=== PATIENT | male | born 1955 | race Caucasian/White ===

== ENCOUNTER 2023-05-09 11:11 | Outpatient (CLI) | payer MEDICARE, BC, SELFPAY | END 2023-05-09 11:12 | disposition home or self-care (01) | PROVIDERS: PCP Family Medicine; Visit Provider Family Medicine | DX: E78.5 Hyperlipidemia, unspecified (principal); E04.1 Nontoxic single thyroid nodule; Z12.5 Encounter for screening for malignant neoplasm of prostate; Z13.228 Encounter for screening for other metabolic disorders | CPT/HCPCS: 80048; 80061; 84443; 84460; G0103 ==

== ENCOUNTER 2023-05-15 14:35 | Outpatient (CLI) | payer MEDICARE, BC, SELFPAY ==
--- NOTE | 2023-05-15 15:00 | US_ITS ---
Patient: ROSA ROMERO Facility:?[facility] Patient ID:?[id number] Site Patient ID:?[id number]. Site :?[id number] Study:?US-Thyroid THYROID-05/15/2023 10:27:13 AM Ordering Physician:AUSTIN QUIGLEY M.D. Final Report: INDICATION: Thyroid nodule COMPARISON: none TECHNIQUE: Pedro scale and color Doppler images were acquired of the thyroid gland. FINDINGS: Slightly hypoechoic nodule inferior pole right thyroid lobe measures 9 x 8 x 11 millimeters. Solid and cystic nodule left thyroid lobe measures 3.4 x 2.1 x 2.6 cm. The right lobe measures 5.4 x 1.8 x 1.8 cm and the left lobe measures 5.0 x 2.5 x 2.7 cm in size. Isthmus measures 2 millimeters. The color Doppler images demonstrate normal vascularity. There is no evidence of cervical lymphadenopathy or parathyroid mass. IMPRESSION: 3.4 cm TR 3 nodule left thyroid lobe. FNA recommended. Dictated by Austin Patterson MD @ 05/20/2023 3:55:27 PM Signed by:?Austin Patterson MD @05/20/2023 3:55:27 PM (Electronic Signature)
== END 2023-05-15 14:36 | disposition home or self-care (01) ==
LOC: US 14:36
PROVIDERS: PCP Family Medicine; Visit Provider Family Medicine
DX: E04.1 Nontoxic single thyroid nodule (principal)
CPT/HCPCS: 76536

== ENCOUNTER 2023-06-19 09:57 | Outpatient (CLI) | payer MEDICARE, BC, SELFPAY ==
--- NOTE | 2023-06-19 10:15 | US_ITS ---
Patient: ROSA ROMERO Facility:?[facility] Patient ID:?[id number] Site Patient ID:?[id number]. Site :?1955 Study:?US-Thyroid Left THYROID FNA / DR. FUENTES TO READ-06/19/2023 10:49:40 AM Ordering Physician:?AUSTIN ALVARADO M.D. Final Report: INDICATION : Left thyroid nodule. TECHNIQUE : Ultrasound-guided fine needle aspiration of thyroid nodule. Procedure performed by Radiology Physician cafe assistant. Comparison : 05/15/2023 FINDINGS : PROCEDURE: After the informed consent and time-out, multiple fine needle aspirations were obtained from the thyroid nodule. Fine needle performed. 25 gauge needles were used. Lidocaine was used for local anesthesia. The preliminary cytology was adequate for interpretation. Real-time imaging was used for guidance and needle placement. Post imaging ultrasound demonstrates no immediate complication. IMPRESSION : Successful fine needle aspiration of left thyroid nodule. Dictated by Austin Funetes MD @ 06/20/2023 4:40:19 PM Signed by:?Austin Fuentes MD @06/20/2023 4:40:19 PM (Electronic Signature)
== END 2023-06-19 09:58 | disposition home or self-care (01) ==
LOC: US 09:58
PROVIDERS: PCP Family Medicine; Visit Provider Family Medicine
DX: E04.1 Nontoxic single thyroid nodule (principal)
CPT/HCPCS: 10005; 88173

== ENCOUNTER 2025-01-18 09:42 | Outpatient (CLI) | payer MEDICARE, BC, SELFPAY | END 2025-01-18 09:43 | disposition home or self-care (01) | PROVIDERS: PCP Internal Medicine; Visit Provider Internal Medicine | DX: R53.83 Other fatigue (principal) | CPT/HCPCS: 80053; 84403; 84443 ==

== ENCOUNTER 2025-01-24 14:43 | Outpatient (CLI) | payer MEDICARE, BC, SELFPAY | END 2025-01-24 14:44 | disposition home or self-care (01) | LOC: RAD 14:44 | PROVIDERS: PCP Internal Medicine; Visit Provider Internal Medicine | DX: I48.91 Unspecified atrial fibrillation (principal) | CPT/HCPCS: 93306 ==